=== PATIENT | female | born 1960 | race Caucasian/White ===

== ENCOUNTER → 2017-03-11 | Outpatient (CLI) | payer OTHER ==
--- NOTE | 2017-03-12 08:24 | MR ---
EXAMINATION TYPE: MR knee LT wo con DATE OF EXAM: 03/11/2017 9:49 PM COMPARISON: NONE HISTORY: Left Knee pain x3 weeks TECHNIQUE: Multiplanar, multisequence imaging of the left knee is performed without IV contrast. FINDINGS: MEDIAL MENISCUS: There is a small radial tear of the meniscal body at the junction of the anterior an d posterior horns of both the anterior and posterior horn of the medial meniscus are intact. LATERAL MENISCUS: Anterior and posterior horns are intact without tear. CRUCIATE LIGAMENTS: The anterior and posterior cruciate ligaments are intact and unremarkable. COLLATERAL LIGAMENTS: The medial collateral ligament and lateral collateral ligament complex are inta ct and unremarkable. EXTENSOR MECHANISM: Subtle and mild increased signal is seen at the patellar tendon origin at the inf erior patellar pole. Patellar tendon is intact as is the quadriceps tendon. EFFUSION: No significant suprapatellar joint effusion. Mild prepatellar soft tissue swelling is note d. POPLITEAL CYST: No popliteal/guevara cyst. TRICOMPARTMENT SPACES: Tricompartment spaces are preserved without joint space narrowing. CARTILAGE: No evidence of chondromalacia or focal chondral defect. BONE MARROW SIGNAL: No focal abnormal marrow signal is appreciated. OTHER: No additional significant abnormality is appreciated. IMPRESSION: Radial tear of the body of the medial meniscus. No underlying abnormal bone marrow signal.
== END ==
LOC: RADMRIMAIN 21:10
PROVIDERS: ATTEND Family Medicine
DX: S83.242A Other tear of medial meniscus, current injury, left knee, initial encounter (principal)

== ENCOUNTER → 2022-11-10 | Outpatient (CLI) | payer OTHER ==
--- NOTE | 2022-11-10 15:10 | P.SLEEP ---
History of Present Illness DATE: 11/10/2022 CONSULTATION/NEW PATIENT EVALUATION HISTORY OF PRESENT ILLNESS/SLEEP-WAKE EVALUATION: 62-year-old lady had been ev aluated in the sleep center for possible obstructive sleep apnea hypopnea syndrome. SLEEP SCHEDULE: Usually sleep schedule on weekdays from 11 PM to 6 AM and on weekend from midnight until 6:45 AM. FALLING ASLEEP: No problems with falling asleep, no TV in bedroom. DURING SLEEP: Patient usually sleeps on the side position with loud snoring and multiple awakenings from sleep. Positive history of restless leg symptoms and nocturia. No history of hypnogogical hallucinations, sleep paralysis, or cataplexy. DURING THE DAY/WAKE STATE: During the day patient feels sleepiness. [place] sleepiness scale is increased to 11. Patient may take up to 2 naps afternoon. PAST MEDICAL HISTORY: Anxiety, fibromyalgia, some increasing goal blood sugar. PAST SURGICAL HISTORY: Total hysterectomy for uterus cancer in 2013. MEDICATIONS: Sertraline 50 mg once a day, dicyclomine 20 mg as needed, Tylenol or ibuprofen for pain as needed. SOCIAL HISTORY: Negative for smoking or using alcohol. FAMILY HISTORY: Hypertension, stroke, cancer, restless legs, diabetes, mental illness. REVIEW OF SYSTEMS: Loud snoring, multiple awakenings from sleep, sleepiness during the day. No fevers. No double vision. No recent chest pain. No shortness of breath. No abdominal pain. No bleeding episodes. No blood in urine. No seizure episodes. PHYSICAL EXAMINATION: GENERAL: A pleasant patient without any distress. VITAL SIGNS: BP 138/83, HR 66, RR 16, weight 300.4 pounds, height 5 foot three- quarter inches, body mass index 57.2. HEENT: PERRLA, EOMI. Evaluation of oropharynx showed tongue protrudes midline, low position of soft palate Mallampati 3. NECK: Supple. No JVD. Thyroid is not palpable. 17 inches in circumference. LUNGS: Clear to percussion and to auscultation. Good air exchange. No wheezing or rhonchi. HEART: S1, S2 regular. No murmurs, gallops or rubs. ABDOMEN: Soft and nontender. Bowel sounds are present. No organomegaly appreciated. Obese. EXTREMITIES: No clubbing or cyanosis. ACCOUNTING LECTURER: Awake, alert, and oriented x3. Cranial nerves 2 to 7 intact. There is no fasciculation or atrophy noted. No focal deficits observed. ASSESSMENT: 1. Loud snoring, multiple awakenings from sleep, low position of soft palate Mallampati 3, wide neck 17 inches in circumference, sleepiness [place] Sleepiness Scale increased to 11. Obstructive sleep apnea hypopnea syndrome. 2. Obesity, body mass index 57.2. 3. Fibromyalgia. 4. Anxiety. 5 episodes of increasing blood sugar. PLAN: 1. Polysomnography for evaluation of patient's breathing during sleep. 2. CPAP/BiPAP titration if sleep study confirms obstructive sleep apnea- hypopnea syndrome. 3. Preferable position during sleep on the side. 4. No driving if patient feels any sleepiness. Patient is aware of civil and criminal liability for unsafe driving. 5. Sleep hygiene with regular sleep time for at least 7.5-8 hours. 6. Watching and aggressive losing weight. Thank you very much for referring this patient for consultation. Sincerely, Girma Rogel MD, PhD, FAASM. Diplomat of [place] [employer], Sleep Medicine Board by [place] [employer] [place] [employer] [facility] - Sleep Note Sleep Note: Temperature: Pulse Rate: Respiratory Rate: Blood Pressure: SpO2: Height: Weight: BMI: Neck Circumference:
== END ==
LOC: SLEEP 14:29
PROVIDERS: ATTEND Internal Medicine
DX: G47.33 Obstructive sleep apnea (adult) (pediatric) (principal); E66.9 Obesity, unspecified; Z68.43 Body mass index [BMI] 50.0-59.9, adult; M79.7 Fibromyalgia; F41.9 Anxiety disorder, unspecified; R73.9 Hyperglycemia, unspecified
CPT/HCPCS: 99211